=== PATIENT | female | born 1955 | race Caucasian/White ===

== ENCOUNTER → 2021-04-06 14:58 | Outpatient (BNVA) | payer OTHER, SELFPAY | PROVIDERS: PCP Internal Medicine; Visit Provider Student in an Organized Health Care Education/Training Program | DX: M17.11 Unilateral primary osteoarthritis, right knee (principal) | CPT/HCPCS: 99212 ==

== ENCOUNTER 2021-04-13 09:28 | Outpatient (REF) | payer MEDICARE, BC, SELFPAY ==
--- NOTE | ~2021-04-13 | XR_ITS ---
EXAMINATION: CR X-RAY KNEE BILATERAL CLINICAL INFORMATION: Knee pain. COMPARISON: The radiograph dated 09/03/2019 TECHNIQUE: Weightbearing AP views as well as axial and lateral views of the bilateral knees were obtained. FINDINGS: Moderate to severe tricompartmental degenerative joint changes are seen most pronounced in the medial femoral-tibial compartments bilaterally, right greater than left. There is no acute fracture or dislocation. There is a trace right suprapatellar joint effusion. Small calcified densities are seen posterior to the left knee. The soft tissues are unremarkable. XR/XR knee RT 2V IMPRESSION: 1. Moderate to severe tricompartmental degenerative joint changes bilaterally, right greater than left. 2. Trace right suprapatellar joint effusion.
--- NOTE | ~2021-04-13 | XR_ITS ---
EXAMINATION: CR X-RAY KNEE BILATERAL CLINICAL INFORMATION: Knee pain. COMPARISON: The radiograph dated 09/03/2019 TECHNIQUE: Weightbearing AP views as well as axial and lateral views of the bilateral knees were obtained. FINDINGS: Moderate to severe tricompartmental degenerative joint changes are seen most pronounced in the medial femoral-tibial compartments bilaterally, right greater than left. There is no acute fracture or dislocation. There is a trace right suprapatellar joint effusion. Small calcified densities are seen posterior to the left knee. The soft tissues are unremarkable. XR/XR knee standing BI IMPRESSION: 1. Moderate to severe tricompartmental degenerative joint changes bilaterally, right greater than left. 2. Trace right suprapatellar joint effusion.
--- NOTE | ~2021-04-13 | XR_ITS ---
EXAMINATION: CR X-RAY KNEE BILATERAL CLINICAL INFORMATION: Knee pain. COMPARISON: The radiograph dated 09/03/2019 TECHNIQUE: Weightbearing AP views as well as axial and lateral views of the bilateral knees were obtained. FINDINGS: Moderate to severe tricompartmental degenerative joint changes are seen most pronounced in the medial femoral-tibial compartments bilaterally, right greater than left. There is no acute fracture or dislocation. There is a trace right suprapatellar joint effusion. Small calcified densities are seen posterior to the left knee. The soft tissues are unremarkable. XR/XR knee LT 2V IMPRESSION: 1. Moderate to severe tricompartmental degenerative joint changes bilaterally, right greater than left. 2. Trace right suprapatellar joint effusion.
== END 2021-04-13 09:29 | disposition home or self-care (01) ==
LOC: HO.HOSX 09:28
PROVIDERS: Visit Provider Orthopaedic Surgery
DX: M17.0 Bilateral primary osteoarthritis of knee (principal)
CPT/HCPCS: 73560; 73565; 99202

== ENCOUNTER → 2021-10-25 10:36 | Outpatient (BNVA) | payer OTHER, SELFPAY | PROVIDERS: PCP Internal Medicine; Visit Provider Psychiatry & Neurology Neurology | DX: R51.9 Headache, unspecified (principal); F41.9 Anxiety disorder, unspecified | CPT/HCPCS: 99212 ==

== ENCOUNTER 2021-11-11 09:13 | Outpatient (REF) | payer OTHER, SELFPAY ==
[2021-11-11 12:19] LABS: Alanine Aminotransferase 24 U/L (0-31); Albumin Level 4.2 g/dL (3.5-5.0); Alkaline Phosphatase 75 U/L (39-117); Anion Gap 12 (12-20); Aspartate Amino Transferase 19 U/L (5-31); Bilirubin Total 0.8 mg/dL (0.0-1.0); Blood Urea Nitrogen 14 mg/dL (9-16); Calcium 9.9 mg/dL (8.4-10.2); Carbon Dioxide 25 mmol/L (22-29); Chloride 106 mmol/L (96-108); Estimated Glomerular Filt Rate > 60; Glucose Random 88 mg/dL (60-115); Potassium 4.3 mmol/L (3.3-5.1); Sodium 139 mmol/L (135-145); Total Protein 7.3 g/dL (6.5-8.0)
== END 2021-11-11 09:14 | disposition home or self-care (01) ==
LOC: HO.LAB 09:13
PROVIDERS: PCP Internal Medicine; Visit Provider Nurse Practitioner Family
DX: M17.0 Bilateral primary osteoarthritis of knee (principal)
CPT/HCPCS: 36415; 80053; 99212

== ENCOUNTER → 2022-05-05 10:21 | Outpatient (BNVA) | payer OTHER, SELFPAY | PROVIDERS: PCP Internal Medicine; Visit Provider Psychiatry & Neurology Neurology | DX: R51.9 Headache, unspecified (principal); F41.9 Anxiety disorder, unspecified | CPT/HCPCS: 99212 ==

== ENCOUNTER 2022-12-09 12:07 | Outpatient (REF) | payer MEDICARE, SELFPAY ==
--- NOTE | ~2022-12-09 | XR_ITS ---
EXAMINATION: Bilateral knee x-ray CLINICAL INFORMATION: Pain COMPARISON: Previous x-rays from 2020 TECHNIQUE: 3 views of each knee FINDINGS: Right: Bone alignment is normal. No fracture or dislocation. There is tricompartment arthritis with joint space narrowing and osteophyte formation. There is an osteophyte at the quadriceps tendon insertion to the patella. There is no joint effusion. Left: Bone alignment is normal. No fracture or dislocation. There is tricompartment arthritis. There is an osteophyte at the quadriceps tendon insertion to the patella. There is a very small joint effusion. XR/XR knee LT 3V IMPRESSION: Severe bilateral arthritis.
--- NOTE | ~2022-12-09 | XR_ITS ---
EXAMINATION: Bilateral knee x-ray CLINICAL INFORMATION: Pain COMPARISON: Previous x-rays from 2020 TECHNIQUE: 3 views of each knee FINDINGS: Right: Bone alignment is normal. No fracture or dislocation. There is tricompartment arthritis with joint space narrowing and osteophyte formation. There is an osteophyte at the quadriceps tendon insertion to the patella. There is no joint effusion. Left: Bone alignment is normal. No fracture or dislocation. There is tricompartment arthritis. There is an osteophyte at the quadriceps tendon insertion to the patella. There is a very small joint effusion. XR/XR knee RT 3V IMPRESSION: Severe bilateral arthritis.
[2022-12-09 13:33] LABS: MANUAL DIFF FLAG NO
[2022-12-09 13:58] LABS: Basophils Percent Auto 0.3 % (0-2); Eosinophils Absolute Auto 0.2 X10*3/uL (0.0-0.4); Eosinophils Percent Auto 1.5 % (0-4); Hematocrit 40.5 % (37.0-47.0); Hemoglobin 13.7 g/dl (12.0-16.0); Imm Gran Abs Auto 0.04 X10*3/uL (0.00-0.03); Imm Gran Pct Auto 0.4 % (0.0-0.4); Lymphocytes Percent Auto 20.4 % (20-40); Mean Corpuscular HGB Conc 33.8 g/dl (31.0-35.0); Mean Corpuscular Hemoglobin 31.4 pg (27.0-33.0); Mean Corpuscular Volume 92.7 fL (80.0-98.0); Mean Platelet Volume 10.1 fL (9.4-12.3); Monocytes Absolute Auto 0.8 X10*3/uL (0.1-1.2); Monocytes Percent Auto 8.6 % (2-11); Neutrophils Absolute Auto 6.7 x10*3/uL (2.0-8.3); Neutrophils Percent Auto 68.8 % (45-73); Platelet Count 226 X10*3/uL (160-400); Red Blood Count 4.37 X10*6/uL (4.20-5.50); Red Cell Distribution Width 12.3 % (11.0-16.0); White Blood Count 9.8 X10*3/uL (4.8-10.8)
[2022-12-09 14:26] LABS: Alanine Aminotransferase 21 U/L (0-31); Albumin Level 4.2 g/dL (3.5-5.0); Alkaline Phosphatase 80 U/L (39-117); Anion Gap 12 (12-20); Aspartate Amino Transferase 20 U/L (5-31); Bilirubin Total 0.6 mg/dL (0.0-1.0); Blood Urea Nitrogen 12 mg/dL (9-16); Calcium 9.4 mg/dL (8.4-10.2); Carbon Dioxide 24 mmol/L (22-29); Chloride 107 mmol/L (96-108); Estimated Glomerular Filt Rate > 60; Glucose Random 88 mg/dL (60-115); Potassium 4.2 mmol/L (3.3-5.1); Sodium 139 mmol/L (135-145); Total Protein 7.4 g/dL (6.5-8.0)
== END 2022-12-09 12:08 | disposition home or self-care (01) ==
LOC: HO.XRAY 12:07
PROVIDERS: PCP Internal Medicine; Visit Provider Nurse Practitioner Family
DX: M17.11 Unilateral primary osteoarthritis, right knee (principal); M25.562 Pain in left knee; Z79.899 Other long term (current) drug therapy
CPT/HCPCS: 36415; 73562; 80053; 85025; 99212

== ENCOUNTER → 2022-12-23 12:13 | Outpatient (BNVA) | payer OTHER, MEDICARE, SELFPAY | PROVIDERS: PCP Internal Medicine; Visit Provider Orthopaedic Surgery | DX: M17.0 Bilateral primary osteoarthritis of knee (principal) | CPT/HCPCS: 20610; 99212; J1100 ==

== ENCOUNTER 2023-07-11 09:21 | Outpatient (AMB) | payer OTHER, SELFPAY ==
[2023-07-11 09:25] VITALS: BP 112/70; PULSE 78; TEMP 36.1; O2SAT 98; BMI 30.2
--- NOTE | 2023-07-11 09:25 | MHC.OFFVIS ---
Intake Vital Signs 07/11/23 09:25 Height 5 ft 7 in Weight 192 lb 10.944 oz BMI 30.2 BP 112/70 Blood Pressure Location Lt brachial Position Sitting Pulse 78 Pulse Source Pulse Oximeter Temp 97 F Temp Source Skin Pulse Oximetry (%) 98 Oxygen Delivery Method Room Air Intake Visit Reasons: OA Intake Note: Patient presents today to follow up on OA. Would like cortisone injections on both knees. Would also like to try Euflexxa. States this was discussed with ortho in the past. Last seen by Janel on 12/09/22. Sweet Dough Mixer Required: No Accompanied by: Self / Same As Patient Allergies clarithromycin [From BIAXIN] Allergy (Unknown, Verified 07/11/23 09:26) RASH Penicillins [PCN] Allergy (Unknown, Verified 07/11/23:) RASH Sulfa (Sulfonamide Antibiotics) [SULFA (SULFONAMIDE ANTIBIOTICS)] Allergy (Unknown, Verified 07/11/23 09:26) RASH HPI HPI Comments History of Present Illness Details The patient returns for evaluation of her osteoarthritis of the knees. This has been going on for a number of years. She thinks her symptoms worsened when she had a fall at work about 5 years ago. She did get a corticosteroid injection from Dr. Sue back in 2019 that she thought was helpful. The patient had bilateral corticosteroid injections in December from Orthopedics. She is not sure they gave much benefit at that point. She does take some occasional Advil and [id number] acetaminophen. She is worried about higher doses of Advil as she has a stomach condition. She also was trying some fkbw-orm-kokfomq glucosamine but thought the pills were too big. She had some physical therapy about 5 years ago but she felt it made her worse. She has retired now. She lives alone but she has a niece that helps her out. She walks with a cane. [facility] Medical History Anxiety Concussion Diverticulitis Head injury HTN (hypertension) Hyperlipidemia Post-concussion headache Surgical History Hx of shoulder surgery Hx of appendectomy Family History Mother Heart disease Sister Heart problem Alcohol intake: never Patient Tobacco Use Status: Never used Tobacco e-Cigarette/Vaping Use: Never Used Current occupational status: retired Review of Systems Const Details: Negative for appetite change, weight change, fever, chills, malaise and fatigue Eyes Details: Negative for vision change, dry eyes,headaches and dizziness Card Details: Negative chest pain, edema and syncope Resp Details: Negative for SOB, cough and wheezing GI Details: Negative indigestion/heartburn, nausea, abdominal pain, bowel changes, diarrhea, constipation and bloody stool. Endo Details: Negative for polyuria and polydypsia Sancho/Lymph Details: Negative for excessive bruising or bleeding. Physical Exam Vital Signs: Last Vital Signs Temp 97 F 07/11/23 09:25 Pulse 78 07/11/23 09:25 BP 112/70 07/11/23 09:25 Pulse Ox 98 07/11/23 09:25 Oxygen Delivery Method Room Air 07/11/23 09:25 BMI result Body Mass Index 30.2 APPEARANCE: Patient in no acute distress. She walks slowly with a staggering gait. EYES no redness, pupils equal and reactive to light, eyelids normal. No temporal artery tenderness, redness or swelling. EXTREMITIES: No edema, no calf tenderness, normal peripheral pulses. JOINT EXAM: ?? Cervical Spine:? Full range of motion without pain; no tenderness. Thoracic Spine:? No tenderness on palpation. Lumbar Spine:? Alignment normal.? Full range of motion without pain, no tenderness. Hands:?LEFT: Normal pain-free range of motion without tenderness, swelling, increased warmth or erythema. 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 Heberdens node DIP 2. RIGHT: Flexion deformity PIP 2 and 5. Herberdens node DIP 2. No tenderness, swelling, increased warmth or erythema. Wrists:? Normal pain-free range of motion without tenderness, swelling, increased warmth or erythema. Elbows: Normal pain-free range of motion without tenderness, swelling, increased warmth or erythema. Shoulders: Full range of motion without pain. No tenderness, weakness, swelling, increased warmth or erythema. Hips: Full range of motion without pain. Hip bursa:No tenderness. Knees: LEFT: Mild pain with full extension. There is mild to moderate patellofemoral crepitus with mild medial compartment tenderness. No redness or effusion. Mild popliteal tenderness without swelling. No effusion. RIGHT: Pain with more than 45 degrees of flexion or extension. There is moderate patellofemoral crepitus with mild medial compartment and slight lateral compartment tenderness. There is some slight tenderness in the popliteal region without swelling. No redness or warmth. ? Ankles:? Normal pain-free range of motion without tenderness, swelling, increased warmth or erythema. 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 No fracture or dislocation. There is tricompartment arthritis with joint space narrowing and osteophyte formation. There is an osteophyte at the quadriceps tendon insertion to the patella. There is no joint effusion. Left: Bone alignment is normal. No fracture or dislocation. There is tricompartment arthritis. There is an osteophyte at the quadriceps tendon insertion to the patella. There is a very small joint effusion. XR/XR knee RT 3V IMPRESSION: Severe bilateral arthritis. Dictated By: Gayathri Liriano MD Signed By: <Electronically signed by Gayathri Liriano MD in OV> Assessment & Plan Assessment & Plan (1) Osteoarthritis of hand, right: Code(s): M19.041 - Primary osteoarthritis, right hand (2) Primary osteoarthritis of knees, bilateral: Code(s): M17.0 - Bilateral primary osteoarthritis of knee Plan The patient has some mild osteoarthritis in the right hand which does not bother her much. More problematic of course is relatively severe osteoarthritis in the knees. She is not a good candidate for NSAIDs because she gets GI upset even without them. I told her she could increase her acetaminophen up to two of the 650 mg Arthritis Tylenol twice a day. In the past she had been receiving tramadol but does not think it helped a lot. I would be reluctant to restart that given the limited benefit it gave, her age and her gait instability. We discussed possible physical therapy but since she thinks it made her worse before she does not want to proceed. She has heard about gel injections for the knees and has had some discussion with Orthopedics about that. I think she should return for further discussions and possible gel injections. The corticosteroid injection in 2019 worked better than the more recent ones in December. This is not surprising as OA certainly can be a progressive disorder. I gave her some written information on osteoarthritis to review. We will try to arrange a return appointment to Orthopedics. Coding Level of Care Code Est Pt Level 3 (49139) Diagnoses Osteoarthritis of hand, right M19.041 Primary osteoarthritis of knees, bilateral M17.0
== END 2023-07-11 10:13 | disposition home or self-care (01) ==
LOC: HO.RHE 09:21
PROVIDERS: PCP Internal Medicine; Visit Provider Internal Medicine Rheumatology
DX: M19.041 Primary osteoarthritis, right hand (principal); M17.0 Bilateral primary osteoarthritis of knee
CPT/HCPCS: 99213

== ENCOUNTER → 2023-07-11 09:21 | Outpatient (BNVA) | payer MEDICARE, SELFPAY | PROVIDERS: PCP Internal Medicine; Visit Provider Internal Medicine Rheumatology | DX: M17.0 Bilateral primary osteoarthritis of knee (principal); M19.041 Primary osteoarthritis, right hand | CPT/HCPCS: 99212 ==

== ENCOUNTER 2023-07-28 11:15 | Outpatient (AMB) | payer OTHER, SELFPAY ==
--- NOTE | 2023-07-28 11:22 | MHC.OFFVIS ---
Intake Vital Signs 07/28/23 11:23 Height 5 ft 7 in Weight 192 lb BMI 30.1 Intake Visit Reasons: Bilateral Knee - Last done 12/23/22 Intake Note: Vera is a 67 year old female who presents today for a follow up of her bilateral knee pain, last injection was given on 12/23/22. Patient was hoping to receive gel injection today, i explained to her that we need authorization for the gel injection. We have previously submitted for gel but she had not tried cortisone yet so the injections were denied. Allergies clarithromycin [From BIAXIN] Allergy (Unknown, Verified 07/11/23 09:26) RASH Penicillins [PCN] Allergy (Unknown, Verified 07/11/23 09:26) RASH Sulfa (Sulfonamide Antibiotics) [SULFA (SULFONAMIDE ANTIBIOTICS)] Allergy (Unknown, Verified 07/11/23 09:26) RASH HPI Bilateral Knee - Last done 12/23/22 HPI Details Vera is a 67 year old woman who returns to discuss her bilateral knee OA. She was last seen, and injected bilaterally, on 12/23/22, with mild relief. She continues to have pain with daily activity, and difficulty with walking. She thought today she would be receiving gel injections, but this was not approved by her insurance company at this time. She is requesting Synvisc injections bilaterally. [facility] Medical History Anxiety Concussion Diverticulitis Head injury HTN (hypertension) Hyperlipidemia Post-concussion headache Surgical History Hx of shoulder surgery Hx of appendectomy Family History Mother Heart disease Sister Heart problem Social History Alcohol intake: never Patient Tobacco Use Status: Never used Tobacco e-Cigarette/Vaping Use: Never Used Current occupational status: retired Review of Systems Const All systems reviewed & are unremarkable except as noted in HPI and below Physical Exam Vital Signs: BMI result Body Mass Index 30.1 Const General: no acute distress, alert and awake Orientation/consciousness: patient oriented x3 HEENT Head: Yes normocephalic and Yes atraumatic Eyes EOM: EOMs intact bilaterally Resp Effort & Inspection: normal respiratory effort and able to speak in complete sentences Cardio Jugular venous distension: no JVD Skin General skin exam: turgor normal Rashes: no rashes Neuro General: patient oriented x3 Extrem Other: medial ttp Psych Appearance: grossly normal Affect: normal affect Attitude: cooperative Results Reviewed Results Reviewed: I personally reviewed relevant radiographs. Severe bilateral knee OA Assessment & Plan Assessment & Plan (1) Primary osteoarthritis of knees, bilateral: Code(s): M17.0 - Bilateral primary osteoarthritis of knee Plan: steroid not helpful. Gel injections. Will contact when available. Plan Scribed for Danis De León MD by George Saunders, director medical affairs, on 07/28/23 at 11:40 AM, EST. Coding Level of Care Code Est Pt Level 3 (23309) Diagnoses Primary osteoarthritis of knees, bilateral M17.0
[2023-07-28 11:23] VITALS: BMI 30.1
== END 2023-07-28 11:59 | disposition home or self-care (01) ==
PROVIDERS: PCP Internal Medicine; Visit Provider Orthopaedic Surgery
DX: M17.0 Bilateral primary osteoarthritis of knee (principal); Z04.2 Encounter for examination and observation following work accident
CPT/HCPCS: 99213

== ENCOUNTER → 2023-07-28 11:15 | Outpatient (BNVA) | payer MEDICARE, SELFPAY | PROVIDERS: PCP Internal Medicine; Visit Provider Orthopaedic Surgery | DX: M17.0 Bilateral primary osteoarthritis of knee (principal) | CPT/HCPCS: 99212 ==

== ENCOUNTER 2023-08-07 12:35 | Outpatient (AMB) | payer OTHER, SELFPAY ==
--- NOTE | 2023-08-07 13:01 | MHC.OFFVIS ---
Intake Intake Visit Reasons: Bilateral Knee Durolane Intake Note: Vera is a 67 year old female who presents today for bilateral knee Durolane injections however she is unsure if she wants to do gel or cortisone today Allergies clarithromycin [From BIAXIN] Allergy (Unknown, Verified 07/11/23 09:26) RASH Penicillins [PCN] Allergy (Unknown, Verified 07/11/23 09:26) RASH Sulfa (Sulfonamide Antibiotics) [SULFA (SULFONAMIDE ANTIBIOTICS)] Allergy (Unknown, Verified 07/11/23 09:26) RASH HPI Bilateral Knee Durolane HPI Details Vera is a 67 year old woman who returns to discuss her bilateral knee OA. She was last injected bilaterally on 12/23/22, with mild relief. She continues to have pain with daily activity, and difficulty with walking. She is here today for bilateral injections, and has been approved for Durolane, but she is unsue if she wants to have gel or steroid injections today. COUNTS INCLUDE 234 BEDS AT THE [facility] Medical History Anxiety Concussion Diverticulitis Head injury HTN (hypertension) Hyperlipidemia Post-concussion headache Surgical History Hx of shoulder surgery Hx of appendectomy Family History Mother Heart disease Sister Heart problem Social History Alcohol intake: never Patient Tobacco Use Status: Never used Tobacco e-Cigarette/Vaping Use: Never Used Current occupational status: retired Review of Systems Const All systems reviewed & are unremarkable except as noted in HPI and below Physical Exam Const General: no acute distress, alert and awake Orientation/consciousness: patient oriented x3 HEENT Head: Yes normocephalic and Yes atraumatic Eyes EOM: EOMs intact bilaterally Resp Effort & Inspection: normal respiratory effort and able to speak in complete sentences Cardio Jugular venous distension: no JVD Skin General skin exam: turgor normal Rashes: no rashes Neuro General: patient oriented x3 Extrem Other: skin c/d/i Psych Appearance: grossly normal Affect: normal affect Attitude: cooperative Office Procedures Joint Injection/Drain Joint Injection/Drain Details: Injected Durolane. Site was prepped using aseptic technique. Patient tolerated the procedure well. Primary Site: right knee Secondary Site: left knee Approach Used: posterolateral Coding 11554 - Large joint 68715 - Glenohumeral/Tronchanteric Bursa/Intraarticular Procedure code (CPT) selection complete Results Reviewed Results Reviewed: I personally reviewed relevant radiographs. Severe bilateral knee OA Assessment & Plan Assessment & Plan (1) Primary osteoarthritis of knees, bilateral: Code(s): M17.0 - Bilateral primary osteoarthritis of knee Plan: Durolane bilateral knees Plan Scribed for Danis De León MD by George Saunders, medical data entry clerk, on 08/07/23 at 1:10 PM, EST. Coding Level of Care Code Est Pt Level 2 (73172) Diagnoses Primary osteoarthritis of knees, bilateral M17.0 CPT Codes Coding - 80796 Large joint: 45439 - Large joint ([id number]) Coding - Joint 7: 05155 - Glenohumeral/Tronchanteric Bursa/Intraarticular ([id number])
== END 2023-08-07 13:26 | disposition home or self-care (01) ==
PROVIDERS: PCP Internal Medicine; Visit Provider Orthopaedic Surgery
DX: M17.0 Bilateral primary osteoarthritis of knee (principal)
CPT/HCPCS: 20610

== ENCOUNTER → 2023-08-07 12:35 | Outpatient (BNVA) | payer MEDICARE, SELFPAY | PROVIDERS: PCP Internal Medicine; Visit Provider Orthopaedic Surgery | DX: M17.0 Bilateral primary osteoarthritis of knee (principal) | CPT/HCPCS: 20610; J7318 ==

== ENCOUNTER 2023-11-15 12:00 | Outpatient (RCR) | payer MEDICARE, SELFPAY ==
--- NOTE | 2023-10-23 13:24 | MHC.PT.EP ---
[facility] [place] Office [place] Office [place] Office [address] Shahla Ramos [address] [phone] F: [phone] F: [phone] F: [phone] F: [phone] Physical Therapy Plan of Care Date of Evaluation: 10/23/23 Date of Surgery: N/A Diagnosis: primary osteoarthritis of knees, bilateral (RL) Assessment: pt is a 68 y/o female presenting to physical therapy w/ referring diagnosis of primary osteoarthritis of knees, bilateral. pt arrived 25 minutes late to evaluation so minimal objective findings completed at this time. Will continue remainder of eval next visit. Impairments include pain, decreased range of motion, decreased strength, impaired functional mobility, impaired postural awareness, and altered ambulation mechanics. pt is a fair candidate for skilled PT due to age, potential remediation of impairments, typical disease/condition progression and prognosis, comorbidities, and motivation. pt would benefit from skilled PT intervention to provide a tailored strengthening and stretching exercise program, functional training, gait training, postural re-training, neuromuscular re-education, modalities as needed for pain, equipment safety demonstration. Frequency and Duration: The patient will be seen 2x/wk for 3 wks Short Term Goals: pt will be I w/ HEP to promote self-management of condition. pt will improve B knee flexion by at least 10 degrees to promote ease in stair/curb navigation. Jail Goals: pt will perform x5 sit to stand transfers w/ UE assist to promote improved transfer ability from all sitting surfaces. pt will ascend/descend 4 stairs mod I w/ use of handrail to promote improved tolerance for entering/exiting home. Treatment Plan: Modalities to reduce pain, spasms and effusion. Manual therapy to restore motion and function. Therapeutic exercise to improve strength and flexibility. Neuromuscular re-education for posture and balance. Therapeutic activities to return to functional activities of daily living. Electronically signed by: Shanel Mondragon PT, DPT Please sign and return to therapist. Thank you for your referral.
--- NOTE | 2023-12-14 11:51 | MHC.PT.DC ---
[facility] [place] Office [place] Office [place] Office [address] Shahla Ramos [address] [facility] [phone] F: [phone] F: [phone] F: [phone] F: [phone] Physical Therapy Discharge Report Diagnosis: primary osteoarthritis of knees, bilateral (RL) Date of Surgery: N/A Date of Evaluation: 10/23/23 Date of Discharge: 12/14/23 Treatments to Date: 4 Cancellations to Date: 5 No Shows to Date: 1 Discharge Status: Insurance Declined Tx Discharge Summary: The patient was reporting an improvement in her knee pain with very simple lower extremity exercises. She has some cognitive limitations which I am assuming is from a prior TBI. It was difficult to progress her. She was informed that the worker's comp claim was denied and there would be no coverage for her PT visits. She self discharged at this time because she did not want to self-pay or switch to her personal insurance. Electronically signed by: Shanel Mondragon PT, DPT Please sign and return to therapist. Thank you for your referral.
== END 2023-12-14 11:52 | disposition home or self-care (01) ==
LOC: HO.PT 12:00
PROVIDERS: PCP Internal Medicine; Visit Provider Orthopaedic Surgery
DX: M17.0 Bilateral primary osteoarthritis of knee (principal)
CPT/HCPCS: 97110; 97162; 97530